=== PATIENT | female | born 1980 | race Caucasian/White ===

== ENCOUNTER 2024-04-13 07:18 | Outpatient (REF) | payer OTHER, SELFPAY | END 2024-04-13 07:19 | disposition home or self-care (01) | LOC: HO.MAMMO 07:18 | PROVIDERS: PCP Internal Medicine; Visit Provider Internal Medicine | DX: Z12.31 Encounter for screening mammogram for malignant neoplasm of breast (principal) | CPT/HCPCS: 77063; 77067 ==

== ENCOUNTER → 2024-04-13 07:30 | Outpatient (BNV) | payer OTHER, SELFPAY | PROVIDERS: PCP Internal Medicine; Visit Provider Internal Medicine | DX: Z12.31 Encounter for screening mammogram for malignant neoplasm of breast (principal) | CPT/HCPCS: 77063; 77067 ==

== ENCOUNTER 2024-04-18 14:49 | Outpatient (REF) | payer OTHER, SELFPAY | END 2024-04-18 14:50 | disposition home or self-care (01) | LOC: CF 14:49 | DX: Z13.89 Encounter for screening for other disorder (principal) ==

== ENCOUNTER → 2025-04-15 08:45 | Outpatient (BNV) | payer OTHER, SELFPAY | PROVIDERS: PCP Internal Medicine; Visit Provider Internal Medicine | DX: Z12.31 Encounter for screening mammogram for malignant neoplasm of breast (principal) | CPT/HCPCS: 77063; 77067 ==

== ENCOUNTER 2025-04-15 08:46 | Outpatient (REF) | payer OTHER, SELFPAY ==
--- OUTSIDE RECORDS SUMMARY | 2025-04-15 10:39 | XMS_ITS | Clinical Summary ---
Author Organization [facility] Prior to 09/14/24 Address [address] [place] [address] Care Team Providers Care Fire Prevention Chief Name Role Phone Curt Lopez MD Primary Care Provider [phone] Allergies Active Allergy Reactions Criticality Noted Date Comments Penicillin G Rash Low 05/15/2020 Hydrocodone-Acetaminophen Rash Low 05/15/2020 Medications No known medications Immunizations Name Administration Dates Next Due Covid-19 (Moderna 12+) 100mcg/0.5mL dosage 05/15,04/16/2020 Covid-19 (Moderna Booster 18+) 0.25mL dosage 03/2021 Influenza Quad (Fluarix/Fluz one/FluLaval) 0.5mL (SD-IIV4) 03/26/2019 Social History Tobacco Use Types Packs/Day Years Used Date Smoking Tobacco: Never Smokeless Tobacco: Never Alcohol Use Standard Drinks/Week Comments Not Currently 0 (1 standard drink = 0.6 oz pur e alcohol) Sex and Gender Information Value Date Recorded Sex Assigned at Female 05/08/2020 10:27 AM EST Gender Identity Not on file Sexual Orientation Not on file Job Start Date Occupation Industry Not on file Not on file Not on file Last Filed Vital Signs Vital Sign Reading Time Taken Comments Blood Pressure 143/99 12/23/2021 11:48 AM EDT Pulse 108 12/23/2021 11:48 AM EDT Temperature 36.8 C (98.2 F) 12/23/2021 11:48 AM EDT Respiratory Rate 16 12/23/2021 11:48 AM EDT Oxygen Saturation 96% 12/23/2021 11:48 AM EDT Inhaled Oxygen Concentration - - Weight 54.4 kg (120 lb) 12/23/2021 11:48 AM EDT Height 160 cm (5' 3 ) 12/23/2021 11:48 AM EDT Body Mass Index 21.26 12/23/2021 11:48 AM EDT Plan of Treatment Health Maintenance Due Date Last Done Comments Hepatitis B Vaccines (1 of 3 - 3-dose series) 1982 Hepatitis C Screening 1982 Depression Screening 1994 Preventative Health Evaluation 2000 Cervical Cancer Screening (Pap Smear) 2003 DTap / Tdap / Td (2 - Td or Tdap) 10/23/2017 10/24/2007 COVID-19 Vaccine (2024- 6 season) 2024 02/26/2021, 05/15/2020, 04/16/2020 Influenza Vaccine (#1) 2024 03/26/2019 Pneumococcal Vaccine Aged Out No long er eligible based on patient's age to complete this topic RSV Ped < 20 months Aged Out No longe r eligible based on patient's age to complete this topic Care Teams Fire Prevention Chief Relationship Specialty Start Date End Date Curt Lopez MD [address] [place] [address] PCP - General Internal Medicine 12/23/21
--- OUTSIDE RECORDS SUMMARY | 2025-04-15 10:39 | XMS_ITS ---
Author Name [facility] Organization Unknown Allergies Allergen Reaction Severity Comment Documented Date Source Statu s DILAUDID RASH [facility] PENICILLINS RASH [facility] Encounters Encounter Type Encounter Reason Primary Diagnosis Location Date Ambulatory [facility] 03[facility]17 [facility] Care Team Organization Name Specialty Phone Email Start Date End Da te [facility] 2024 [facility] 02/28/2024 [facility] 02/27/2024
--- OUTSIDE RECORDS SUMMARY | 2025-04-15 10:39 | XMS_ITS | Clinical Summary ---
Author Organization [facility] [place] [address] Care Team Providers Care Gaming Associate Name Role Phone Curt Lopez MD Primary Care Provider [phone] Social History Tobacco Use Types Packs/Day Years Used Date Smoking Tobacco: Never Smokeless Tobacco: Never Alcohol Use Standard Drinks/Week Comments Not Currently 0 (1 standard drink = 0.6 oz pur e alcohol) Comments Unknown Sex and Gender Information Value Date Recorded Sex Assigned at Not on file Legal Sex Female 9:37 PM EDT Gender Identity Not on file Sexual Orientation Not on file Plan of Treatment Health Maintenance Due Date Last Done Comments Breast Cancer Screening 1982 DTaP,Tdap,and Td Vaccines (1 - Tdap) 2001 Hepatitis B Vaccines (1 of 3 - 19+ 3-dose series) 2001 Cervical Cancer Screening: P ap Smear 2003 HPV Vaccines (1 - 3-dose SCD M series) 2009 Depression Screening 04/17/2024 COVID-19 Vaccine (4 - 2024-2 6 season) 2024 02/26/2021, 05/15/2020, 04/16/2020 Influenza Vaccine (#1) 2024 03/26/2019 RSV Immunization Adult Patients (1 - 1-dose 75+ series) 2057 HIB Vaccines Aged Out No longer eligi ble based on patient's age to complete this topic Hepatitis A Vaccines Aged Out No long er eligible based on patient's age to complete this topic IPV Vaccines Aged Out No longer eligi ble based on patient's age to complete this topic MMR Vaccines Aged Out No longer eligi ble based on patient's age to complete this topic Meningococcal ACWY Vaccine Aged Out N o longer eligible based on patient's age to complete this topic Meningococcal B Vaccine Aged Out No l onger eligible based on patient's age to complete this topic Pneumococcal Vaccine: Pediatrics (0 to 5 Years) and At-Risk Patients (6 to 49 Years) Aged Out No longer eligible b ased on patient's age to complete this topic RSV Immunization Patients Under 20 months Aged Out No longer eligible b ased on patient's age to complete this topic Varicella Vaccines Aged Out No longer eligible based on patient's age to complete this topic Care Teams Gaming Associate Relationship Specialty Start Date End Date Curt Lopez MD [address] [place] [id number] PCP - General Internal Medicine 12/23/21
== END 2025-04-15 08:47 ==
LOC: HO.MAMMO 08:46
PROVIDERS: PCP Internal Medicine; Visit Provider Internal Medicine
DX: Z12.31 Encounter for screening mammogram for malignant neoplasm of breast (principal)
CPT/HCPCS: 77063; 77067